=== PATIENT | male | born 1985 | race Caucasian/White ===

== ENCOUNTER 2018-05-13 22:58 | Emergency (ER) | payer BC ==
[~2018-05-13] VITALS: Ht 170.1 cm; Wt 127.0 kg
[2018-05-13] MEDS ORDERED: AUGMENTIN 875875 MG PO (23:08)
[2018-05-13] MEDS ORDERED: Motrin,Rufen800 MG PO (23:08)
== END 2018-05-14 00:24 | disposition home or self-care (01) ==
LOC: ED 22:58
DX: S61.257A Open bite of left little finger without damage to nail, initial encounter (principal); W54.0XXA Bitten by dog, initial encounter; Y93.F9 Activity, other caregiving; Y92.89 Other specified places as the place of occurrence of the external cause; Y99.8 Other external cause status

== ENCOUNTER → 2019-03-19 | Outpatient (CLI) | payer BC ==
[~2019-03-19] MED LIST: AUGMENTIN 875875 MG PO; Motrin,Rufen800 MG PO
--- NOTE | ~2019-03-19 | EKG ---
[place], [place] ELECTROCARDIOGRAM REPORT NAME: TYESHA TINEO UNIT #: [id number] ROOM: DOCTOR: EPIPHANY DRAFT REPORT BIRTHDATE: [birth year] [facility] Test Date: 2019-03-19 Test Time: 13:24:49 Pat Name: TYESHA TINEO Department: Room: Gender: Genetics Nurse: : [id number] Requested By: JHONY RIBEIRO Order Number: [id number] Reading MD: Davis Roman MD Measurements Intervals [place] Rate: 87 P: 29 SC: 161 QRS: -5 QRSD: 90 T: 26 QT: 337 QTc: 406 Interpretive Statements Sinus rhythm No previous ECG available for comparison Electronically Signed On 03-22-2019 7:54:45 PDT by Davis Roman MD CM:EKGRPT:ELECTROCARDIOGRAM REPORT [id number] JHONY RIOS DRAFT REPORT JHONY RIBEIRO
[2019-03-19 13:39] LABS: BILIRUBIN NEGATIVE (NEGATIVE); BLOOD NEGATIVE (NEGATIVE); CLARITY CLEAR (CLEAR); COLOR YELLOW (YELLOW); GLUCOSE NEGATIVE (NEGATIVE); KETONE NEGATIVE (NEGATIVE); LEUKO ESTERASE NEGATIVE (NEGATIVE); NITRITE NEGATIVE (NEGATIVE); UROBILINOGEN 0.2 E.U./dl (0.2-1.0)
[2019-03-19 13:42] LABS: BASO # 0.1 10*3/uL (0.0-0.1); BASO % 0.8 % (0.0-1.0); EOS # 0.4 10*3/uL (0.0-0.4); EOS % 4.8 % (1.0-4.0); HEMATOCRIT 48.1 % (42.0-52.0); HEMOGLOBIN 17.1 g/dl (14.0-18.0); MEAN CELL VOLUME 90.1 fl (80.0-94.0); MEAN CORPUSCULAR HGB CONC 35.6 g/dl (33.0-37.0); MEAN PLATELET VOLUME 9.5 fl (9.6-12.3); MONO # 0.7 10*3/uL (0.1-1.0); MONO % 8.1 % (3.0-9.0); NEUT # 4.5 10*3/uL (2.3-7.9); NEUT % 51.2 % (47.0-73.0); PLATELET COUNT AUTOMATED 267 10*3/uL (130-400); RED BLOOD COUNT 5.34 10*6/uL (4.50-5.90); RED CELL DISTRI WIDTH 11.9 % (0-14.5); WHITE BLOOD COUNT 8.8 10*3/uL (4.8-10.8)
[2019-03-19 13:51] LABS: BACTERIA TRACE; EPITHELIAL CELLS 0-2; WBC 0-2 wbc/hpf (0-5)
[2019-03-19 13:52] LABS: ALBUMIN 4.1 gm/dl (3.1-4.5); ALKALINE PHOSPHATASE 99 U/L (45-117); BUN 19 mg/dl (7-24); CHLORIDE 107 mmol/L (98-107); CHOLESTEROL 170 mg/dL (<200); CREATININE 1.16 mg/dL (0.70-1.30); HDL CHOLESTEROL 28 mg/dl (40-60); LDL CHOLESTEROL 98 mg/dL (9-159); POTASSIUM 4.2 mmol/L (3.5-5.1); SGOT/AST 18 IU/L (3-35); SGPT/ALT 57 U/L (12-78); SODIUM 136 mmol/L (136-145); THYROXINE (T4) TOTAL 9.1 ug/dl (4.5-12.1); TOTAL PROTEIN 8.1 gm/dL (6.4-8.2); TRIGLYCERIDES 221 mg/dl (<150); VLDL CHOLESTEROL 44 mg/dL (6-40)
== END | disposition home or self-care (01) ==
LOC: LAB 13:04
PROVIDERS: Nurse Practitioner Primary Care
DX: I10 Essential (primary) hypertension (principal); E55.9 Vitamin D deficiency, unspecified; E66.9 Obesity, unspecified